=== PATIENT | female | born 1995 | race Two or more races ===

== ENCOUNTER 2019-07-17 18:04 | Emergency (ER) | payer OTHER ==
[~2019-07-17] VITALS: Ht 162.6 cm; Wt 56.7 kg
--- NOTE | 2019-07-17 19:00 | NUR ---
Pt back to ER from Xray.
[2019-07-17 19:06] VITALS: BP 140/90
--- NOTE | 2019-07-17 19:06 | NUR ---
Patient discharged to home in stable conditon. Written and verbal after care instructions given. Patient verbalizes understanding of instructions. Pt ambulated out of ER with steady gait, no acute signs of distress, VSS, all belongings taken.
== END 2019-07-17 19:06 | disposition home or self-care (01) ==
LOC: ER 18:08
DX: S16.1XXA Strain of muscle, fascia and tendon at neck level, initial encounter (principal); V43.52XA Car driver injured in collision with other type car in traffic accident, initial encounter; Y93.89 Activity, other specified; Y92.89 Other specified places as the place of occurrence of the external cause; Y99.8 Other external cause status
CPT/HCPCS: 72072; A4663